=== PATIENT | female | born 1950 | race Caucasian/White ===

== ENCOUNTER 2018-02-10 14:19 | Inpatient (IN) | payer MEDICARE, MEDICAID ==
[~2018-02-10] VITALS: Ht 165.1 cm; Wt 80.7 kg
[2018-02-10] MEDS ORDERED: PANTOPRAZOLE SODIUM 40 MG TABLET.DR PO ONE ×2 (16:00→16:07)
[2018-02-10] MEDS ORDERED: ACETAMINOPHEN ES 500 MG TABLET PO ONE (16:00)
[2018-02-10] MEDS ORDERED: ACETAMINOPHEN ES 500 MG TABLET ONE (16:07)
[2018-02-10] MEDS ORDERED: ESTR42.53 VG (16:41)
[2018-02-10] MEDS ORDERED: SIMV20TA6 PO (16:41)
[2018-02-10] MEDS ORDERED: NICO1PAT45 TD (16:41)
[2018-02-10] MEDS ORDERED: NICO-671 TD (16:41)
[2018-02-10] MEDS ORDERED: LEVO75TA7 PO (16:41)
[2018-02-10] MEDS ORDERED: ASPI-866 PO (16:41)
[2018-02-10] MEDS ORDERED: ALEN70TA3 PO (16:41)
[2018-02-10] MEDS ORDERED: CHOL200026 PO (16:41)
[2018-02-10] MEDS ORDERED: AMPI500C11 PO (16:41)
[2018-02-10] MEDS ORDERED: CALC-764 PO (16:41)
[2018-02-10 18:00] VITALS: BP_SYST 151; BP_SYST 192; BP_DIAS 88; BP_DIAS 94
[2018-02-10] MEDS ORDERED: MAGNESIUM HYDROXIDE 30 ML LIQUID UDC PO PRN (18:15)
[2018-02-10] MEDS ORDERED: MAG HYDROX/AL HYDROX/SIMETH 30 ML LIQUID UDC PO PRN (18:15)
[2018-02-10] MEDS ORDERED: LORAZEPAM 1 MG TABLET PO PRN (18:15)
[2018-02-10] MEDS ORDERED: TEMAZEPAM 7.5 MG CAPSULE PO PRN (18:15)
[2018-02-10 20:00] VITALS: BP 141/74
[2018-02-10] MEDS ORDERED: ALENDRONATE SODIUM 70 MG TABLET PO SCH (20:00)
[2018-02-10] MEDS: SIMVASTATIN 20 MG TABLET PO SCH (22:05)
[2018-02-11 07:30] VITALS: BP 132/64
[2018-02-11] MEDS ORDERED: LEVOTHYROXINE SODIUM 75 MCG TABLET PO SCH ×2 (07:30→09:00)
[2018-02-11] MEDS ORDERED: LORAZEPAM 0.5 MG TABLET PO PRN (07:45)
[2018-02-11] MEDS: ASPIRIN EC 81 MG TABLET.DR PO SCH (08:18)
[2018-02-11] MEDS: NICOTINE 14 MG/24HR PATCH TD SCH (08:18)
[2018-02-11] MEDS: CHOLECALCIFEROL 1,000 UNIT TABLET PO SCH (08:19)
[2018-02-11] MEDS: CALCIUM CARB/VITAMIN D 500MG-200UNITS TABLET PO SCH ×2 (08:19→17:12)
[2018-02-11] MEDS ORDERED: [UNRECOGNIZED DRUG - OTHER] PO SCH (09:00)
[2018-02-11] MEDS ORDERED: Medication Not On Formulary EA (Cholecalciferol (Vitamin D3) (Vitamin D3 TAB) 2,000 UNIT PO SCH (09:00)
[2018-02-11] MEDS ORDERED: CEPHALEXIN MONOHYDRATE 500 MG CAPSULE PO SCH (09:00)
[2018-02-11] MEDS ORDERED: VITAMIN D3 PO SCH (09:00)
[2018-02-11] MEDS ORDERED: CALCIUM CARBONATE PO SCH (09:00)
[2018-02-11 15:27] VITALS: BP 133/73
[2018-02-11 20:04] VITALS: BP 138/75
[2018-02-11] MEDS: QUETIAPINE FUMARATE 200 MG TABLET PO SCH (21:03)
[2018-02-11] MEDS: TRAZODONE 50 MG TABLET PO SCH (21:04)
[2018-02-11] MEDS: SIMVASTATIN 20 MG TABLET PO SCH (21:04)
[2018-02-11] MEDS: LITHIUM CARBONATE 300 MG CAPSULE PO SCH (21:04)
[2018-02-11] MEDS: LAMOTRIGINE 200 MG TABLET PO SCH (21:04)
[2018-02-12] MEDS: LEVOTHYROXINE SODIUM 75 MCG TABLET PO SCH (06:17)
[2018-02-12 07:30] VITALS: BP 125/68
[2018-02-12] MEDS: ASPIRIN EC 81 MG TABLET.DR PO SCH (08:15)
[2018-02-12] MEDS: LAMOTRIGINE 200 MG TABLET PO SCH ×2 (08:15→21:25)
[2018-02-12] MEDS: CALCIUM CARB/VITAMIN D 500MG-200UNITS TABLET PO SCH ×2 (08:16→16:05)
[2018-02-12] MEDS: NICOTINE 14 MG/24HR PATCH TD SCH (08:16)
[2018-02-12] MEDS: CHOLECALCIFEROL 1,000 UNIT TABLET PO SCH (08:16)
[2018-02-12 12:09] LABS: *BILIRUBIN,URIN NEGATIVE (NEGATIVE); *BLOOD, URINE Trace-intact (NEGATIVE); *CLARITY,URINE CLEAR (CLEAR); *COLOR,URINE YELLOW (YELLOW); *KETONES,URINE NEGATIVE (NEGATIVE); *PROTEIN,URINE NEGATIVE (NEGATIVE); *UROBILINOGEN,URINE 0.2 E.U./dl (NORMAL); LEUKOCYTE ESTERASE ,URINE NEGATIVE (NEGATIVE); NITRITE, URINE NEGATIVE (NEGATIVE); UGLUCOSE NEGATIVE (NEGATIVE)
[2018-02-12 13:43] LABS: BACTERIA,URINE NONE SEEN /HPF (NONE SEEN); SQUAMOUS EPITHELIAL CELL,UR MODERATE /HPF (NONE SEEN); WBC,URINE 0-3 /HPF (0-3)
[2018-02-12] MEDS: ACETAMINOPHEN 325 MG TABLET PO PRN (14:17)
[2018-02-12 16:50] VITALS: BP 126/78
[2018-02-12 20:15] VITALS: BP 133/75
[2018-02-12] MEDS: TRAZODONE 50 MG TABLET PO SCH (21:25)
[2018-02-12] MEDS: LITHIUM CARBONATE 300 MG CAPSULE PO SCH (21:25)
[2018-02-12] MEDS: QUETIAPINE FUMARATE 200 MG TABLET PO SCH (21:25)
[2018-02-12] MEDS: SIMVASTATIN 20 MG TABLET PO SCH (21:25)
[2018-02-13] MEDS: LEVOTHYROXINE SODIUM 75 MCG TABLET PO SCH (06:13)
[2018-02-13] MEDS: ACETAMINOPHEN 325 MG TABLET PO PRN (06:28)
[2018-02-13 08:16] VITALS: BP 109/68
[2018-02-13] MEDS: CALCIUM CARB/VITAMIN D 500MG-200UNITS TABLET PO SCH ×2 (08:16→16:06)
[2018-02-13] MEDS: ASPIRIN EC 81 MG TABLET.DR PO SCH (08:16)
[2018-02-13] MEDS: NICOTINE 14 MG/24HR PATCH TD SCH (08:16)
[2018-02-13] MEDS: CHOLECALCIFEROL 1,000 UNIT TABLET PO SCH (08:16)
[2018-02-13] MEDS: LATUDA 80MG TABLET PO SCH (08:17)
[2018-02-13] MEDS: LAMOTRIGINE 200 MG TABLET PO SCH ×2 (08:17→21:27)
[2018-02-13 10:17] LABS: BASOPHILS % (AUTO) 0.3 % (0.0-2.0); EOSINOPHILS # (AUTO) 0.4 K/uL (0.0-0.7); EOSINOPHILS % (AUTO) 7.6 % (0.0-7.0); HEMATOCRIT 41.3 % (31.2-41.9); HEMOGLOBIN 14.3 g/dL (10.9-14.3); LYMPHOCYTES # (AUTO) 1.5 K/uL (20.0-40.0); LYMPHOCYTES % (AUTO) 28.9 % (20.5-51.5); MEAN CORPUSCULAR HEMOGLOBIN 31.9 uug (24.7-32.8); MEAN CORPUSCULAR HGB CONC 35 g/dL (32.3-35.6); MEAN CORPUSCULAR VOLUME 91.9 fL (75.5-95.3); MONOCYTES # (AUTO) 0.4 K/uL (2.0-10.0); MONOCYTES % (AUTO) 8.5 % (0.0-11.0); NEUTROPHILS # (AUTO) 2.9 K/uL (1.8-8.9); NEUTROPHILS % (AUTO) 54.7 % (38.5-71.5); PLATELET COUNT (AUTO) 245 K/uL (179-408); RED BLOOD CELL COUNT(AUTO) 4.49 MIL/uL (3.63-4.92); WHITE BLOOD COUNT (AUTO) 5.3 K/uL (3.8-11.8)
[2018-02-13 10:31] LABS: BILIRUBIN,TOTAL 0.2 mg/dL (0.2-1.0); MAGNESIUM 1.8 mg/dL (1.8-2.4); PHOSPHOROUS 2.7 mg/dL (2.5-4.9); POTASSIUM 4.1 mmol/L (3.5-5.1); TOTAL PROTEIN, SERUM 6.5 g/dL (6.4-8.2)
[2018-02-13 10:43] LABS: THYROID STIMULATING HORMONE 2.38 mIU/mL (0.358-3.740)
[2018-02-13 15:31] VITALS: BP 123/82
[2018-02-13 19:52] VITALS: BP 123/68
[2018-02-13] MEDS: TRAZODONE 50 MG TABLET PO SCH (21:27)
[2018-02-13] MEDS: LITHIUM CARBONATE 300 MG CAPSULE PO SCH (21:27)
[2018-02-13] MEDS: QUETIAPINE FUMARATE 200 MG TABLET PO SCH (21:27)
[2018-02-13] MEDS: SIMVASTATIN 20 MG TABLET PO SCH (21:27)
[2018-02-14] MEDS: LEVOTHYROXINE SODIUM 75 MCG TABLET PO SCH (06:39)
[2018-02-14 07:30] VITALS: BP 106/56
[2018-02-14] MEDS: CALCIUM CARB/VITAMIN D 500MG-200UNITS TABLET PO SCH ×2 (09:58→17:33)
[2018-02-14] MEDS: ASPIRIN EC 81 MG TABLET.DR PO SCH (09:58)
[2018-02-14] MEDS: LATUDA 80MG TABLET PO SCH (09:59)
[2018-02-14] MEDS: CHOLECALCIFEROL 1,000 UNIT TABLET PO SCH (09:59)
[2018-02-14] MEDS: LAMOTRIGINE 200 MG TABLET PO SCH ×2 (09:59→21:21)
[2018-02-14] MEDS: NICOTINE 14 MG/24HR PATCH TD SCH (09:59)
[2018-02-14 16:48] VITALS: BP 123/64
[2018-02-14] MEDS: TRAZODONE 50 MG TABLET PO SCH (21:21)
[2018-02-14] MEDS: LITHIUM CARBONATE 300 MG CAPSULE PO SCH (21:21)
[2018-02-14] MEDS: SIMVASTATIN 20 MG TABLET PO SCH (21:21)
[2018-02-14] MEDS: QUETIAPINE FUMARATE 200 MG TABLET PO SCH (21:21)
[2018-02-14 21:46] VITALS: BP 143/90
[2018-02-15] MEDS ORDERED: ALENDRONATE SODIUM 70 MG TABLET PO SCH (06:00)
[2018-02-15] MEDS: LEVOTHYROXINE SODIUM 75 MCG TABLET PO SCH (06:14)
[2018-02-15 07:58] VITALS: BP 126/72
[2018-02-15] MEDS: ASPIRIN EC 81 MG TABLET.DR PO SCH (09:47)
[2018-02-15] MEDS: CALCIUM CARB/VITAMIN D 500MG-200UNITS TABLET PO SCH ×2 (09:47→17:01)
[2018-02-15] MEDS: CHOLECALCIFEROL 1,000 UNIT TABLET PO SCH (09:47)
[2018-02-15] MEDS: LAMOTRIGINE 200 MG TABLET PO SCH ×2 (09:47→20:46)
[2018-02-15] MEDS: LATUDA 80MG TABLET PO SCH (09:49)
[2018-02-15] MEDS: NICOTINE 14 MG/24HR PATCH TD SCH (09:49)
[2018-02-15] MEDS: DOCUSATE SODIUM 100 MG CAPSULE PO SCH ×2 (11:43→20:46)
[2018-02-15 16:00] VITALS: BP 144/96
[2018-02-15 20:32] VITALS: BP 143/95
[2018-02-15] MEDS: QUETIAPINE FUMARATE 200 MG TABLET PO SCH (20:46)
[2018-02-15] MEDS: SIMVASTATIN 20 MG TABLET PO SCH (20:46)
[2018-02-15] MEDS: TRAZODONE 50 MG TABLET PO SCH (20:46)
[2018-02-15] MEDS: LITHIUM CARBONATE 300 MG CAPSULE PO SCH (20:46)
[2018-02-16] MEDS: LEVOTHYROXINE SODIUM 75 MCG TABLET PO SCH (06:35)
[2018-02-16 07:30] VITALS: BP 129/80
[2018-02-16] MEDS: NICOTINE 14 MG/24HR PATCH TD SCH (08:40)
[2018-02-16] MEDS: ASPIRIN EC 81 MG TABLET.DR PO SCH (08:40)
[2018-02-16] MEDS: CALCIUM CARB/VITAMIN D 500MG-200UNITS TABLET PO SCH ×2 (08:40→17:31)
[2018-02-16] MEDS: LAMOTRIGINE 200 MG TABLET PO SCH ×2 (08:40→21:18)
[2018-02-16] MEDS: CHOLECALCIFEROL 1,000 UNIT TABLET PO SCH (08:40)
[2018-02-16] MEDS: LATUDA 80MG TABLET PO SCH (08:41)
[2018-02-16] MEDS: DOCUSATE SODIUM 100 MG CAPSULE PO SCH ×2 (08:46→21:18)
[2018-02-16 15:05] VITALS: BP 145/86
[2018-02-16 20:11] VITALS: BP 124/71
[2018-02-16] MEDS: ACETAMINOPHEN 325 MG TABLET PO PRN (20:30)
[2018-02-16] MEDS: TRAZODONE 50 MG TABLET PO SCH (21:18)
[2018-02-16] MEDS: SIMVASTATIN 20 MG TABLET PO SCH (21:18)
[2018-02-16] MEDS: QUETIAPINE FUMARATE 200 MG TABLET PO SCH (21:18)
[2018-02-16] MEDS: LITHIUM CARBONATE 300 MG CAPSULE PO SCH (21:18)
[2018-02-17] MEDS: LEVOTHYROXINE SODIUM 75 MCG TABLET PO SCH (06:32)
[2018-02-17 07:30] VITALS: BP 136/78
[2018-02-17 07:48] LABS: BASOPHILS # (AUTO) 0.1 K/uL (0.0-8.0); BASOPHILS % (AUTO) 0.8 % (0.0-2.0); EOSINOPHILS # (AUTO) 0.4 K/uL (0.0-0.7); EOSINOPHILS % (AUTO) 6.5 % (0.0-7.0); HEMATOCRIT 42.2 % (31.2-41.9); HEMOGLOBIN 14.4 g/dL (10.9-14.3); LYMPHOCYTES # (AUTO) 1.6 K/uL (20.0-40.0); LYMPHOCYTES % (AUTO) 26.3 % (20.5-51.5); MEAN CORPUSCULAR HEMOGLOBIN 31.7 uug (24.7-32.8); MEAN CORPUSCULAR HGB CONC 34 g/dL (32.3-35.6); MEAN CORPUSCULAR VOLUME 93.1 fL (75.5-95.3); MONOCYTES # (AUTO) 0.7 K/uL (2.0-10.0); MONOCYTES % (AUTO) 10.9 % (0.0-11.0); NEUTROPHILS # (AUTO) 3.4 K/uL (1.8-8.9); NEUTROPHILS % (AUTO) 55.5 % (38.5-71.5); PLATELET COUNT (AUTO) 224 K/uL (179-408); RED BLOOD CELL COUNT(AUTO) 4.54 MIL/uL (3.63-4.92)
[2018-02-17 08:12] LABS: BILIRUBIN,TOTAL 0.4 mg/dL (0.2-1.0); MAGNESIUM 1.9 mg/dL (1.8-2.4); PHOSPHOROUS 3.1 mg/dL (2.5-4.9); POTASSIUM 4.3 mmol/L (3.5-5.1); TOTAL PROTEIN, SERUM 6.6 g/dL (6.4-8.2)
[2018-02-17] MEDS: LAMOTRIGINE 200 MG TABLET PO SCH ×2 (08:25→21:12)
[2018-02-17] MEDS: CHOLECALCIFEROL 1,000 UNIT TABLET PO SCH (08:25)
[2018-02-17] MEDS: NICOTINE 14 MG/24HR PATCH TD SCH (08:25)
[2018-02-17] MEDS: ASPIRIN EC 81 MG TABLET.DR PO SCH (08:26)
[2018-02-17] MEDS: CALCIUM CARB/VITAMIN D 500MG-200UNITS TABLET PO SCH ×2 (08:26→17:54)
[2018-02-17] MEDS: LATUDA 80MG TABLET PO SCH (08:28)
[2018-02-17] MEDS: DOCUSATE SODIUM 100 MG CAPSULE PO SCH ×2 (08:36→21:00)
[2018-02-17 20:29] VITALS: BP 156/90
[2018-02-17] MEDS: LITHIUM CARBONATE 300 MG CAPSULE PO SCH (21:12)
[2018-02-17] MEDS: SIMVASTATIN 20 MG TABLET PO SCH (21:12)
[2018-02-17] MEDS: TRAZODONE 50 MG TABLET PO SCH (21:12)
[2018-02-17] MEDS: QUETIAPINE FUMARATE 200 MG TABLET PO SCH (21:12)
[2018-02-18] MEDS: LEVOTHYROXINE SODIUM 75 MCG TABLET PO SCH (06:10)
[2018-02-18 07:30] VITALS: BP 120/77
[2018-02-18] MEDS: NICOTINE 14 MG/24HR PATCH TD SCH (08:24)
[2018-02-18] MEDS: ASPIRIN EC 81 MG TABLET.DR PO SCH (08:24)
[2018-02-18] MEDS: LAMOTRIGINE 200 MG TABLET PO SCH (08:24)
[2018-02-18] MEDS: CALCIUM CARB/VITAMIN D 500MG-200UNITS TABLET PO SCH (08:24)
[2018-02-18] MEDS: CHOLECALCIFEROL 1,000 UNIT TABLET PO SCH (08:24)
[2018-02-18] MEDS: LATUDA 80MG TABLET PO SCH (08:27)
[2018-02-18] MEDS: DOCUSATE SODIUM 100 MG CAPSULE PO SCH (08:32)
== END 2018-02-18 12:45 | disposition home or self-care (01) | DRG 885 ==
LOC: ER 14:20 → GPS 17:40
PROVIDERS: ADMIT Nurse Practitioner Acute Care; ATTEND Psychiatry & Neurology Psychiatry
DX: F31.30 Bipolar disorder, current episode depressed, mild or moderate severity, unspecified (principal); N18.9 Chronic kidney disease, unspecified; E03.9 Hypothyroidism, unspecified; F23 Brief psychotic disorder; N39.0 Urinary tract infection, site not specified; E55.9 Vitamin D deficiency, unspecified; E78.5 Hyperlipidemia, unspecified; F17.200 Nicotine dependence, unspecified, uncomplicated; F41.1 Generalized anxiety disorder; M81.0 Age-related osteoporosis without current pathological fracture; Z59.0 Homelessness; K59.00 Constipation, unspecified; Z91.5 Personal history of self-harm; Z87.440 Personal history of urinary (tract) infections; I12.9 Hypertensive chronic kidney disease with stage 1 through stage 4 chronic kidney disease, or unspecified chronic kidney disease
CPT/HCPCS: 36415; 71045; 83735; 84100; 84443; 85025; 93005; A4663; A9150; J8499